=== PATIENT | female | born 2000 | race Hispanic/Latino ===

== ENCOUNTER 2021-10-21 20:13 | Inpatient (IN) | payer MEDICAID ==
[~2021-10-21] VITALS: Ht 162.6 cm; Wt 96.6 kg
[~2021-10-21 20:13] MED LIST: OXYTOCIN 10 USP UNITS/ML IV ONE
[2021-10-21] MEDS ORDERED: LACTATED RINGERS 1000ML 1,000 ML IV ONE (20:38)
[2021-10-21] MEDS ORDERED: AMPICILLIN 2GM+NS 100ML 100 ML IV ONE (20:38)
[2021-10-21] MEDS ORDERED: OXYTOCIN-LR 20 UNITS/1000 ML 1,000 ML IV ONE (20:39)
[2021-10-21] MEDS ORDERED: MISOPROSTOL 200 MCG TABLET ONE (20:40)
[2021-10-21] MEDS ORDERED: AMPICILLIN 2GM+NS 100ML 100 ML IV SCH (21:00)
[2021-10-21] MEDS ORDERED: LACTATED RINGERS 1000ML 1,000 ML IV PRN (21:00)
[2021-10-21] MEDS ORDERED: OXYTOCIN-LR 20 UNITS/1000 ML 1,000 ML IV SCH (21:00)
[2021-10-21 21:05] LABS: HEMATOCRIT 27.8 % (36-48); MEAN CORPUSCULAR HEMOGLOBIN 16.6 pg (27.0-33.0); MEAN CORPUSCULAR HGB CONC 25.9 g/dL (32.0-36.0); MEAN CORPUSCULAR VOLUME 63.9 fL (79-99); NUCLEATED RED BLOOD CELLS 0.4 % (0.0-0.19); PLATELET COUNT (AUTO) 202 K/uL (130-400); RED BLOOD CELL COUNT(AUTO) 4.35 MIL/uL (4.00-5.50); RED CELL DISTRIBUTION WIDTH 21.2 % (11.0-15.5); WHITE BLOOD COUNT (AUTO) 12.8 K/uL (4.8-10.8)
[2021-10-21 21:05] LABS: APPEARANCE,URINE CLEAR (CLEAR); BILIRUBIN,URINE NEGATIVE (NEGATIVE); COLOR,URINE YELLOW (YELLOW); GLUCOSE, URINE (UA) NEGATIVE (NEGATIVE); KETONES,URINE NEGATIVE (NEGATIVE); LEUKOCYTE ESTERASE ,URINE TRACE (NEGATIVE); NITRATE,URINE NEGATIVE (NEGATIVE); OCCULT BLOOD,URINE NEGATIVE (NEGATIVE); PROTEIN,URINE 30 mg/dL (NEGATIVE); UROBILINOGEN,URINE 0.2 mg/dL (0.2-1.0)
[2021-10-21 21:14] LABS: AMPHET/METH SCREEN,URINE NEGATIVE (NEGATIVE); BARBITURATE SCREEN, URINE NEGATIVE (NEGATIVE); BENZODIAZEPINES SCREEN,URINE NEGATIVE (NEGATIVE); CANNABINOID SCREEN,URINE POSITIVE (NEGATIVE); COCAINE SCREEN,URINE NEGATIVE (NEGATIVE); OPIATE SCREEN,URINE NEGATIVE (NEGATIVE); PHENCYCLIDINE SCREEN,URINE NEGATIVE (NEGATIVE)
[2021-10-21] MEDS ORDERED: OXYTOCIN 10 USP UNITS/ML IV ONE (21:30)
[2021-10-21] MEDS ORDERED: 0.9%NACL 10ML VIAL ONE (21:31)
[2021-10-21] MEDS ORDERED: LIDOCAINE HCL 400MG/20ML VIAL ONE (21:31)
[2021-10-21 21:37] LABS: RBC,URINE 0-1 /HPF (0-1)
[2021-10-21 21:38] LABS: BACTERIA,URINE Rare /HPF (None Seen); SQUAMOUS EPITHELIAL CELL,UR Few /HPF (0-2)
[2021-10-21 21:42] LABS: PLATELET MORPHOLOGY LARGE PLTS PRESENT
[2021-10-21] MEDS ORDERED: DIPH,PERTUSS(ACELL),TET VAC/PF 0.5 ML VIAL IM PRN (22:30)
[2021-10-21] MEDS ORDERED: LANOLIN 30GM OINTMENT TP PRN (22:30)
[2021-10-21] MEDS ORDERED: MEASLES/MUMPS/RUBELLA VACCINE, LIVE 0.5 ML/VIAL SQ PRN (22:30)
[2021-10-21] MEDS ORDERED: BENZOCAINE/LANOLIN/ALOE VERA 60 ML AEROSOL TP PRN (22:30)
[2021-10-21] MEDS ORDERED: ACETAMINOPHEN 325 MG TAB PO PRN (22:30)
[2021-10-21] MEDS ORDERED: WITCH HAZEL 1 PAD TP PRN (22:30)
[2021-10-21] MEDS: IBUPROFEN 600 MG TABLET PO PRN (22:34)
[2021-10-21] MEDS ORDERED: DOCUSATE SODIUM 100 MG CAP PO ONE (22:53)
[2021-10-21 23:44] VITALS: BP 137/78
[2021-10-21 23:57] VITALS: BP 114/62
[2021-10-22] MEDS: ACETAMINOPHEN WITH CODEINE 1 TAB TAB PO PRN ×2 (00:26→04:31)
[2021-10-22] MEDS: IBUPROFEN 600 MG TABLET PO PRN ×3 (00:39→20:38)
[2021-10-22] MEDS ORDERED: AMPICILLIN 1GM+NS 50ML 50 ML IV SCH (01:00)
[2021-10-22] MEDS ORDERED: PREN-202 PO (02:46)
[2021-10-22 03:23] VITALS: BP 116/53
[2021-10-22 07:06] LABS: MEAN CORPUSCULAR HEMOGLOBIN 16.1 pg (27.0-33.0); MEAN CORPUSCULAR VOLUME 62.1 fL (79-99); NUCLEATED RED BLOOD CELLS 0.4 % (0.0-0.19); PLATELET COUNT (AUTO) 110 K/uL (130-400); RED BLOOD CELL COUNT(AUTO) 3.22 MIL/uL (4.00-5.50); RED CELL DISTRIBUTION WIDTH 20.7 % (11.0-15.5); WHITE BLOOD COUNT (AUTO) 13.2 K/uL (4.8-10.8)
[2021-10-22 07:33] VITALS: BP 136/77
[2021-10-22] MEDS: DOCUSATE SODIUM 100 MG CAP PO SCH ×2 (09:44→20:23)
[2021-10-22 11:34] VITALS: BP 116/59
[2021-10-22 15:52] LABS: RAPID PLASMA REAGIN NONREACTIVE (NONREACTIVE)
[2021-10-22 16:54] VITALS: BP 127/79
[2021-10-22 18:27] LABS: HEMATOCRIT 26.2 % (36-48)
[2021-10-22 19:38] VITALS: BP 126/75
[2021-10-22 23:10] VITALS: BP 124/59
[2021-10-23 03:30] VITALS: BP 125/62
[2021-10-23] MEDS: IBUPROFEN 600 MG TABLET PO PRN (03:50)
[2021-10-23 07:30] VITALS: BP 137/72
[2021-10-23] MEDS: DOCUSATE SODIUM 100 MG CAP PO SCH (07:49)
[2021-10-23 11:15] VITALS: BP 125/86
== END 2021-10-23 13:10 | disposition home or self-care (01) | DRG 560 ==
LOC: EDH 20:13 → LDH 20:14 → WSH 23:45
PROVIDERS: ADMIT Obstetrics & Gynecology; ATTEND Obstetrics & Gynecology
PROC: 10E0XZZ Delivery of Products of Conception, External Approach (ICD-10-PCS; principal; 2021-10-21)
PROC: 0KQM0ZZ Repair Perineum Muscle, Open Approach (ICD-10-PCS; 2021-10-21)
PROC: 30233N1 Transfusion of Nonautologous Red Blood Cells into Peripheral Vein, Percutaneous Approach (ICD-10-PCS; 2021-10-21)
DX: O99.824 Streptococcus B carrier state complicating childbirth (principal); Z37.0 Single live birth; O24.420 Gestational diabetes mellitus in childbirth, diet controlled; O70.1 Second degree perineal laceration during delivery; O77.0 Labor and delivery complicated by meconium in amniotic fluid; Z3A.39 39 weeks gestation of pregnancy; Z88.8 Allergy status to other drugs, medicaments and biological substances
CPT/HCPCS: 36415; 36430; 80305; 81001; 85014; 85018; 85027; 86592; 86701; 86850; 86900; 86901; 86922; 87340; 87390; G0378; J0290; J2590; J3490; J7120; P9016

== ENCOUNTER 2025-04-28 18:33 | Emergency (ER) | payer MEDICAID ==
[~2025-04-28] VITALS: Ht 162.6 cm; Wt 89.8 kg
[~2025-04-28 18:33] MED LIST changes: -OXYTOCIN 10 USP UNITS/ML IV ONE; +PREN-202 PO
[2025-04-28 18:39] VITALS: BP 116/60; PULSE 60; RESP 16; TEMP 98; O2SAT 98
[2025-04-28] MEDS ORDERED: FLUT16H NS (18:51)
[2025-04-28] MEDS ORDERED: LORA10TA7 PO (18:51)
--- NOTE | 2025-04-28 18:51 | ERN ---
General Chief Complaint: Earache Stated Complaint: EAR ACHE Time Seen by MD: 18:34 Source: patient History of Present Illness Initial Comments In his is a 24-year-old female coming in complaining of URI symptoms. Per patient she has been having earaches nasal congestion for some time. She quantifies the days that 2-3 days. Allergies: Coded Allergies: azithromycin (Unverified Allergy, Unknown, 10/21/21) Home Meds Reported Medications Vit #76/Iron,Carb/FA (Pnv 29-1 Tablet) 1 Each Tablet, 1 EACH PO AM, TAB 10/22/21 Past Medical History Past Medical History: No Pertinent History Past Surgical History: None Female( History) : 7 Para: 6 Aborts: 0 ROS Dictation CONSTITUTIONAL: No chills, no fever, no weakness, no diaphoresis, no malaise. HEAD/FACE: No signs of trauma. EENT: No eye pain, no blurred vision, no tearing, no double vision, ear pain, no ear discharge, no nose pain, nasal congestion, no throat pain, no throat swelling, no mouth pain. RESPIRATORY: No cough, no orthopnea, no SOB, no stridor, no wheezing. CARDIOVASCULAR: No chest pain, no edema, no palpitations, no syncope. GASTROINTESTINAL/ABDOMINAL: No abdominal pain, no constipation, no diarrhea, no nausea, no vomiting. GENITOURINARY: No abnormal discharge, no dysuria, no frequent urination, no hematuria. No complaints of pain in the genitals. MUSCULOSKELETAL: No back pain, no gout, no joint pain, no joint swelling, no muscle pain, no muscle stiffness, no neck pain. INTEGUMENTARY: No change in color, no change in hair/nails, no dryness, no lesion, no lumps, no rash. NEUROLOGICAL/PSYCH: No anxiety, not depressed, no emotional problem, no headache, no numbness, no pre-existing deficit, no history of seizures, no tremors, no weakness. HEMATOLOGIC/LYMPHATIC: Not anemic, no history of blood clots, no apparent b leeding, no bruising, glands not swollen. All Systems Negative, Except as Noted. Physical Exam Physical Exam Dictation VITAL SIGNS: Reviewed. GENERAL APPEARANCE: Alert, oriented x3, no acute distress, obese. HEAD AND FACE: Non-traumatic. EYES: PERRL, pink conjunctivas, eyelid no trauma, anterior chamber clear. EARS: Pinnas intact and no signs of trauma or erythema. Ear canals clear and no discharge. TMs no erythema. NOSE: No discharge, no bleeding. OROPHARYNX: Mouth normal, teeth no caries, tongue pink. Pharynx erythema. Tonsils no exudates, no abscesses noted. Mucous membrane moist. NECK: Supple, non-tender, no thyromegaly, no masses, no JVD, no bruits. BREAST: Deferred. CHEST: No tenderness, no crepitus, no paradoxical movement, no retractions. LUNGS: Clear, well-ventilated, symmetric, no rales, no wheezing, no rhonchi, no stridor, good breath sounds bilaterally. HEART: Regular rate, regular rhythm, no murmur, no gallops. VASCULAR: No peripheral edema. ABDOMEN: Soft, positive bowel sounds, nondistended, no guarding, nontender, no rebound, no masses no hepatomegaly, no splenomegaly, no Castro's sign, no hernias. RECTAL: Deferred. GENITAL: Deferred. NEUROLOGICAL: Normal speech, gross motor function intact, gross sensory function intact. MUSCULOSKELETAL: Neck nontender, full range of motion, back nontender, full range of motion. EXTREMITIES: Nontender, full range of motion. SKIN: Color pink, dry, no turgor, no rash, no lacerations, no abrasions, no contusions. LYMPHATICS: Deferred. Results Laboratory and Microbiology Labs Reviewed?: Yes MDM MDM: Differential diagnosis: Sinusitis, uri Rationale: Tests considered and ordered secondary to shared decision making include: Previous outside records reviewed: Old ER visits. Risk of complication and/or morbidity or mortality of patient management: None Medications-Per medication reconciliation Need for hospitalization: Patient does not meet criteria for hospitalization. Need for emergency major/minor surgery: No Patient is a 24-year-old female coming in complaining of ear discomfort. On physical exam no erythema of tympanic membranes patient does have oropharyngeal erythema with a nasal turbinate swelling bilateral. Patient will be discharged with a diagnosis of sinusitis. ED Course Vital Signs Date Time Temp Pulse Resp B/P (MAP) Pulse Ox O2 Delivery O2 Flow Rate FiO2 04/28/25 18:34 98.1 61 18 113/62 98 Room Air DX & DISP Disposition: Discharge Departure Impression: Primary Impression: Sinusitis Condition: Stable Scripts Loratadine (Loratadine) 10 Mg Tablet 1 TAB PO DAILY for allergy symptoms for 30 Days, #30 TAB 0 Refills Prov: ADAM TONY MD 04/28/25 Fluticasone Propionate (Flonase Nasal [place]) 50 Mcg/Actuation [place] 2 SPRAY NS DAILY, #16 GM 0 Refills Prov: ADAM TONY MD 04/28/25 Additional Instructions: FOLLOW-UP WITH PRIMARY CARE PROVIDER IN 1 TO 2 DAYS. TAKE MEDICATIONS DIRECTED HERE IN THE EMERGENCY ROOM. OKAY TO CONTINUE HOME MEDICATIONS UNLESS OTHERWISE DISCUSSED DURING YOUR VISIT IN THE EMERGENCY ROOM TODAY. RETURN TO YOUR NEAREST EMERGENCY ROOM IF SYMPTOMS WORSEN OR IF THERE IS NO IMPROVEMENT. CALL 911 IF YOU NEED IMMEDIATE ASSISTANCE. TAKE TYLENOL [id number] NEEDED AND IF NO CONTRAINDICATIONS ARE PRESENT. INCREASE ORAL HYDRATION. A WOUND CULTURE OR URINE CULTURE WAS ORDERED HERE IN THE EMERGENCY ROOM DEPARTMENT PLEASE FOLLOW-UP WITH PRIMARY CARE PROVIDER AND ADVISE THEM TO GET REPORTS FROM OUR FACILITY. IF YOU HAD ANY [place] WRAP/SPLINTS THAT WERE APPLIED HERE, PLEASE DO NOT REMOVE THEM UNTIL YOU SEE YOUR PRIMARY CARE OR SPECIALTY. Referrals: Referrals: CHELY WEBER MD (PCP) Time of Disposition: 18:49 ADAM TONY MD Apr 28, 2025 18:51
== END 2025-04-28 18:59 | disposition home or self-care (01) ==
LOC: EDH 18:33
DX: J32.9 Chronic sinusitis, unspecified (principal); Z88.1 Allergy status to other antibiotic agents
CPT/HCPCS: 99283